=== PATIENT | male | born 1990 | race Caucasian/White ===

== ENCOUNTER 2019-12-03 16:36 | Inpatient (IN) | payer OTHER ==
[~2019-12-03] VITALS: Ht 175.3 cm; Wt 98.1 kg
[2019-12-03] VITALS (7 sets, daily range): BP systolic 119–145; BP diastolic 72–82
--- NOTE | ~2019-12-03 | CON ---
[address] [address] CONSULTATION Name: DAVID KO Room: [address]#: [id number] Admission: 12/03/19 Attend Phys: Alex Ordaz MD Discharge: 12/05/19 Date of : 88 Report #: [id number] THIS REPORT FOR: //name// cc: MAURICIO Kaur family physician/PCP MAURICIO - No family physician/PCP ~ THIS REPORT FOR: //name// CC: [facility] physician/PCP Alex Ordaz DATE OF SERVICE: 12/05/2019 REASON FOR CONSULT: Hematemesis. HISTORY OF PRESENT ILLNESS: This is a 29-year-old male who presented to hospital after bingeing on alcohol and consuming about a gallon of hard liquor for week. The patient does not have any other significant medical history, but apparently has been vomiting. There was evidence of bright red emesis noted. The patient denies any melena, but complains of epigastric pain. PAST MEDICAL HISTORY: Significant for history of alcoholism, otherwise negative. ALLERGIES: No known drug allergy. MEDICATIONS: Please refer to MAR. SOCIAL HISTORY: The patient has been drinking daily alcohol and has recently increased his consumption. FAMILY HISTORY: Noncontributory. PHYSICAL EXAMINATION: VITAL SIGNS: Reveals blood pressure of 155/89, respirations 17, pulse 84, temperature 98.9. LUNGS: Clear. CARDIOVASCULAR: Regular. ABDOMEN: Soft, nontender, nondistended. Bowel sounds are positive. LABORATORY DATA: Revealed sodium of 137, potassium 3.6, BUN is 6, creatinine 0.8, AST 102, ALT is 104 with alkaline phosphatase of 52, total bilirubin is 1.5. INR 1.0. WBC is 3.7 with hemoglobin of 14.6 and platelets 105. IMAGING: CT of abdomen and pelvis was obtained on admission. This demonstrated fatty infiltration of liver, but normal size spleen. There were otherwise no acute [place] [id number] CONSULTATION Name: DAVID KO Room: [address]#: [id number] Admission: 12/03/19 Attend Phys: Alex Ordaz MD Discharge: 12/05/19 Date of : 88 Report #: [id number] ASSESSMENT AND PLAN: The patient with history of alcoholism, who presents with hematemesis. We will proceed with EGD and make further recommendation once completed. Meanwhile, the patient is on Protonix drip and his hemoglobin is being monitored. By: [id number] Fede Castano MD /nt
--- NOTE | ~2019-12-03 | PROC ---
[address] [address] PROCEDURE REPORT Name: DAVID KO Room: [address]#: [id number] Admission: 12/03/19 Attend Phys: Alex Ordaz MD Discharge: 12/05/19 Date of : 88 Report #: [id number] THIS REPORT FOR: //name// cc: MAURICIO - No family physician/PCP FAM - No family physician/PCP ~ THIS REPORT FOR: //name// For GI report, please see the Provation report in Per[employer] 7 content. By: [id number] Records Staff [facility] /ARNULFO
[~2019-12-03 16:36] MED LIST: BETAMETHASONE D45 GM TP; HYDROXYZINE HCL25 M2 PO; IBUPROFEN 800800 M1 PO; KEFLEX500 MG PO; PREDNISONE 10 M10 M1 PO
[2019-12-03 17:18] LABS: CALCIUM 9.5 mg/dL (8.5-10.1); CREATININE 1.2 mg/dL (0.6-1.3); POTASSIUM 3.8 mmol/L (3.5-5.1)
[2019-12-03 17:19] LABS: APTT 24.7 Seconds (25.0-31.3); PROTIME 10.1 Seconds (9.20-11.50)
[2019-12-03 17:21] LABS: ABSOLUTE EOSINOPHILS 0.1 thou/uL (0.0-0.7); ABSOLUTE LYMPHOCYTES 0.6 thou/uL (0.8-5.3); ABSOLUTE MONOCYTES 0.5 thou/uL (0.0-1.2); BASOPHILS 0.5 %; EOSINOPHILS 0.9 %; HEMATOCRIT 45.3 % (42.0-52.0); HEMOGLOBIN 16.3 gm/dL (14.0-18.0); LYMPHOCYTES 9.4 %; MCH 35.8 pg (26.0-34.0); MCV 99.6 fL (80.0-100.0); MONOCYTES 8.4 %; NUCLEATED RBCS 0 /100WBC; PLATELET COUNT* 171 thou/uL (150-400); POLYS 80.8 %; RBC 4.55 mil/uL (4.50-6.00); RDW-CV 12.7 % (10.5-14.5); WBC 6.1 thou/uL (4.0-11.0)
[2019-12-03 17:24] LABS: ALBUMIN 4.4 g/dL (3.4-5.0); PHOSPHORUS* 1.9 mg/dL (2.5-4.9); TOTAL PROTEIN 8.6 g/dL (6.4-8.2)
[2019-12-03 17:29] LABS: SALICYLATE < 2.8 mg/dL (2.8-20.0)
[2019-12-03 17:30] LABS: ACETAMINOPHEN < 2 ug/mL (10-30); ALCOHOL < 10 mg/dL (<10)
[2019-12-03 18:16] LABS: URINE BLOOD 1+ (Negative); URINE CLARITY CLEAR; URINE COLOR YELLOW; URINE GLUCOSE-RANDOM NEGATIVE (Negative); URINE LEUKOCYTES-REFLEX NEGATIVE (Negative); URINE NITRITE-REFLEX NEGATIVE (Negative); URINE PROTEIN 1+ (Negative); URINE SPECIFIC GRAVITY >= 1.030 (1.005-1.030); URINE UROBILINOGEN 0.2 E.U./dl (0.2-1.0)
[2019-12-03 18:17] LABS: ICTOTEST (BILI CONFIRMATORY) Negative (Negative); URINE BILIRUBIN 1+ (Negative); URINE KETONES 3+ (Negative)
[2019-12-03 18:19] LABS: ACETEST (KETONE CONFIRMATORY) Large (Negative)
[2019-12-03 18:22] LABS: AMP/METHAMP Negative (Negative); BARBITURATES Negative (Negative); BENZODIAZEPINES Negative (Negative); COCAINE Negative (Negative); METHADONE Negative (Negative); OPIATES Negative (Negative); PCP Negative (Negative); THC Negative (Negative)
[2019-12-03 18:29] LABS: SQUAMOUS 0-3 Few /LPF (0-3)
[2019-12-03 18:31] LABS: BACTERIA-REFLEX >30 Many /HPF (None Seen); MUCUS >6 Heavy strn/LPF (None Seen); URINE RBC 3-10 Few /HPF (0-2); URINE WBC-REFLEX 0-5 Rare /HPF (0-5)
[2019-12-03 18:32] LABS: CRYSTALS None Seen /LPF (None Seen); HYALINE CASTS 4-10 Moderate /LPF (None Seen)
[2019-12-04] VITALS (18 sets, daily range): BP systolic 112–145; BP diastolic 57–79
[2019-12-04 04:43] LABS: HEMATOCRIT 38.9 % (42.0-52.0); MCH 36.6 pg (26.0-34.0); MCHC 36.1 g/dL (28.0-37.0); MCV 101.3 fL (80.0-100.0); MPV 8.2 fl. (7.2-11.1); RBC 3.84 mil/uL (4.50-6.00); RDW-CV 12.9 % (10.5-14.5)
[2019-12-04 05:05] LABS: PROTIME 10.3 Seconds (9.20-11.50)
[2019-12-04 05:12] LABS: ALBUMIN 3.5 g/dL (3.4-5.0); CALCIUM 7.9 mg/dL (8.5-10.1); CREATININE 1.1 mg/dL (0.6-1.3); MAGNESIUM 2.2 mg/dL (1.8-2.4); POTASSIUM 3.3 mmol/L (3.5-5.1); TOTAL BILIRUBIN 1.8 mg/dL (<0.1-1.0); TOTAL PROTEIN 6.9 g/dL (6.4-8.2)
--- NOTE | 2019-12-04 07:37 | EKG ---
[place] [address] ELECTROCARDIOGRAM REPORT Name: DAVID KO Room: [address] IN .R.#: [id number] Admission: 12/03/19 Attend Phys: Alex Ordaz, Discharge: Date of : 88 Date of Service: 12/03/19 1713 Report #: [id number] THIS REPORT FOR: //name// [facility] ED Test Date: 2019-12-03 Test Time: 17:13:54 Pat Name: DAVID KO Department: Room: 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
[2019-12-04 12:00] LABS: HEMATOCRIT 39.3 % (42.0-52.0); HEMOGLOBIN 14.1 gm/dL (14.0-18.0)
[2019-12-05] VITALS: BP 120/65
[2019-12-05 04:00] VITALS: BP 128/74
[2019-12-05 04:45] LABS: HEMATOCRIT 40.5 % (42.0-52.0); HEMOGLOBIN 14.6 gm/dL (14.0-18.0); MCH 36.3 pg (26.0-34.0); MCHC 36.1 g/dL (28.0-37.0); MCV 100.6 fL (80.0-100.0); MPV 8.1 fl. (7.2-11.1); RBC 4.03 mil/uL (4.50-6.00); RDW-CV 12.9 % (10.5-14.5); WBC 3.7 thou/uL (4.0-11.0)
[2019-12-05 05:04] LABS: PROTIME 10.3 Seconds (9.20-11.50)
[2019-12-05 05:24] LABS: ALBUMIN 3.3 g/dL (3.4-5.0); CALCIUM 8.7 mg/dL (8.5-10.1); CREATININE 0.8 mg/dL (0.6-1.3); POTASSIUM 3.6 mmol/L (3.5-5.1); TOTAL BILIRUBIN 1.5 mg/dL (<0.1-1.0); TOTAL PROTEIN 6.7 g/dL (6.4-8.2)
[2019-12-05 08:00] VITALS: BP 140/83
[2019-12-05] MEDS ORDERED: OMEPRAZOLE40 MG PO (08:54)
[2019-12-05] MEDS ORDERED: PHENERGAN 25 MG25 M1 PO (08:54)
[2019-12-05] MEDS ORDERED: ATIVAN1 M1 PO (09:14)
[2019-12-05 12:18] VITALS: BP 155/89
[2019-12-05 18:08] VITALS: BP 155/89
== END 2019-12-05 18:50 | disposition home or self-care (01) | DRG 378 ==
LOC: M.ERS 16:36 → M.2W 20:09 → M.TBA-ER 20:09 → M.ICU 20:22 → M.2W 12-04 14:41
PROVIDERS: Nurse Practitioner Family; ADMIT Internal Medicine; ATTEND Internal Medicine
PROC: 0DB38ZX Excision of Lower Esophagus, Via Natural or Artificial Opening Endoscopic, Diagnostic (ICD-10-PCS; principal; 2019-12-05)
DX: K92.0 Hematemesis (principal); F10.239 Alcohol dependence with withdrawal, unspecified; E87.6 Hypokalemia; K70.10 Alcoholic hepatitis without ascites; E86.9 Volume depletion, unspecified; Y90.9 Presence of alcohol in blood, level not specified; K21.0 Gastro-esophageal reflux disease with esophagitis; K44.9 Diaphragmatic hernia without obstruction or gangrene